=== PATIENT | male | born 1995 | race Caucasian/White ===

== ENCOUNTER 2021-10-21 19:06 | Inpatient (IN) | payer MEDICAID ==
[~2021-10-21] VITALS: Ht 180.3 cm; Wt 78.9 kg
--- NOTE | 2021-10-21 19:07 | NUR ---
MARIYA ESPINOSA VIA GURNEY TO BED 01.
--- NOTE | 2021-10-21 19:10 | NUR ---
Patient BIB by BLS. C/O Shortness of breath x 7 days. Patient reported, had cough , difficulty breathing for 7 days. Patient had been seen by ERMD in [facility], Dx Pneumonia. Rx IH and Promethazine. A/O,X4, oxygen sat 99% RA, place patient on radiographer cardiac catheterization and pluse ox.
[2021-10-21 19:12] VITALS: BP 134/85
--- NOTE | 2021-10-21 19:30 | NUR ---
COVID-19 swabs collected and sent to lab.
--- NOTE | 2021-10-21 19:42 | NUR ---
CXR at bedside.
[2021-10-21] MEDS ORDERED: ACETAMINOPHEN EXTRA STRENGTH 500 MG TAB PO ONE (20:35)
[2021-10-21] MEDS ORDERED: NACL 0.9% 1,000 ML IV ONE ×2 (20:35)
[2021-10-21] MEDS ORDERED: DOXYCYCLINE 100 MG in DEXTROSE 5% 100 ML IV ONE (20:35)
[2021-10-21 20:52] LABS: BASOPHILS # (AUTO) 0.1 K/uL (0.00-0.22); BASOPHILS % (AUTO) 0.7 % (0.0-2.0); EOSINOPHILS # (AUTO) 0.1 K/uL (0-0.4); EOSINOPHILS % (AUTO) 0.5 % (0.0-4.0); HEMATOCRIT 32.2 % (36-52); HEMOGLOBIN 10.7 g/dL (12.0-18.0); LYMPHOCYTES # (AUTO) 1.6 K/uL (2.0-11.5); LYMPHOCYTES % (AUTO) 10.4 % (20.5-51.1); MEAN CORPUSCULAR HEMOGLOBIN 28 pg (27-31); MEAN CORPUSCULAR HGB CONC 33 g/dL (33-37); MEAN CORPUSCULAR VOLUME 82.9 fL (80-94); MONOCYTES # (AUTO) 1.3 K/uL (0.8-1.0); MONOCYTES % (AUTO) 8.6 % (1.7-9.3); NEUTROPHILS # (AUTO) 12.1 K/uL (1.8-7.7); NEUTROPHILS % (AUTO) 79.8 % (42.2-75.2); PLATELET COUNT (AUTO) 525 K/uL (140-450); RED BLOOD CELL COUNT(AUTO) 3.88 MIL/uL (4.20-6.10); RED CELL DISTRIBUTION WIDTH 14.4 % (11.6-13.7); WHITE BLOOD COUNT (AUTO) 15.2 K/uL (4.8-10.8)
[2021-10-21] MEDS ORDERED: cefTRIAXone 1,000 MG VIAL ONE (20:55)
[2021-10-21 21:09] LABS: ALBUMIN 2.5 g/dL (3.4-5.0); CREATININE 0.8 mg/dL (0.6-1.3); TOTAL BILIRUBIN 1.1 mg/dL (0.0-1.0)
[2021-10-21] MEDS ORDERED: DOXYCYCLINE 100 MG VIAL IV ONE (21:37)
--- NOTE | 2021-10-21 22:50 | NUR ---
Report given to PHYLLIS Aguirre.
[2021-10-21 23:10] VITALS: BP 131/72
[2021-10-21] MEDS ORDERED: DOCUSATE SODIUM 100 MG GELCAP PO PRN (23:10)
[2021-10-21] MEDS ORDERED: SODIUM PHOS / POTASSIUM PHOS 1 PKT PDR PO PRN (23:10)
[2021-10-21] MEDS ORDERED: MORPHINE SULFATE 2 MG/ML SYR IVP PRN (23:10)
[2021-10-21] MEDS ORDERED: ACETAMINOPHEN 325 MG TAB PO PRN (23:10)
[2021-10-21] MEDS ORDERED: MAGNESIUM OXIDE 400 MG TAB PO PRN (23:10)
[2021-10-21] MEDS ORDERED: POTASSIUM CHLORIDE 10 MEQ TABER PO PRN (23:10)
[2021-10-21] MEDS ORDERED: ONDANSETRON 4 MG/2 ML VIAL IM/IVP PRN (23:10)
--- NOTE | 2021-10-21 23:15 | NUR ---
RECEIVED PATIENT FROM ED. PATIENT IS AWAKE, ALERT, AND COOPERATIVE. RESPIRATION EVEN UNLABORED ON ROOM AIR. NICK PAIN. SKIN IS WARM AND DRY. IV PATENT AND INTACT. LUNGS SOUND CRACKLES/DIMINISHED BILATERAL. HEART RATE REGULAR. S1 & S2 NOTED. BOWEL SOUNDS PRESENT IN ALL QUADRANTS. ABDOMEN SOFT AND NON-TENDER. DENIES PAIN. MRSA SCREEN DONE. VITALS WERE TAKEN. ORIENT PATIENT TO ROOM, STAFF, AND CALL LIGHT. ALL SAFETY MEASURES IN PLACE. BED IS AT LOW POSITION. CALL LIGHT WITHIN REACH. WILL CONTINUE TO MONITOR
[2021-10-21 23:39] LABS: PHOSPHORUS 3.8 mg/dL (2.5-4.9)
[2021-10-22 00:16] LABS: MAGNESIUM 2.1 mg/dL (1.8-2.4)
[2021-10-22] MEDS: NACL 0.9% 1,000 ML IV SCH ×2 (00:22→23:41)
--- NOTE | 2021-10-22 02:09 | NUR ---
MADE ROUNDS. PATIENT SLEEPING. RESPIRATION EVEN UNLABORED ON ROOM AIR. NO DISTRESS NOTED. WILL CONTINUE TO MONITOR
[2021-10-22 04:00] VITALS: BP 138/91
--- NOTE | 2021-10-22 04:10 | NUR ---
VITALS WERE TAKEN, PATIENT IN STABLE CONDITION, NO DISTRESS NOTED WILL CONTINUE TO MONITOR
[2021-10-22 05:46] LABS: BARBITURATE, URINE NEGATIVE ng/ml (NEG <=200); BENZODIAZEPINE, URINE NEGATIVE ng/mL (NEG <=200); CANNABINOID, URINE POSITIVE ng/mL (NEG <=50); COCAINE, URINE NEGATIVE ng/mL (NEG <=300); OPIATE, URINE NEGATIVE ng/mL (NEG <=2000); PHENCYCLIDINE SCREEN,URINE NEGATIVE ng/mL (NEG <=25)
[2021-10-22 06:52] LABS: HEMATOCRIT 31.4 % (36-52); HEMOGLOBIN 10.4 g/dL (12.0-18.0); MEAN CORPUSCULAR HEMOGLOBIN 28 pg (27-31); MEAN CORPUSCULAR HGB CONC 33 g/dL (33-37); MEAN CORPUSCULAR VOLUME 84.2 fL (80-94); PLATELET COUNT (AUTO) 487 K/uL (140-450); RED BLOOD CELL COUNT(AUTO) 3.73 MIL/uL (4.20-6.10); RED CELL DISTRIBUTION WIDTH 14.1 % (11.6-13.7); WHITE BLOOD COUNT (AUTO) 11.2 K/uL (4.8-10.8)
--- NOTE | 2021-10-22 07:11 | NUR ---
ENDORSED PATIENT TO DAY SHIFT NURSE FOR CONTINUITY OF CARE.
[2021-10-22 07:46] LABS: ANION GAP 12.2 (8-16); CARBON DIOXIDE 23.9 mmol/L (21-32); CREATININE 0.7 mg/dL (0.6-1.3); POTASSIUM 4.1 mmol/L (3.5-5.1)
--- NOTE | 2021-10-22 08:11 | NUR ---
PATIENT HAS BEEN SCREENED AND CATEGORIZED MODERATE NUTRITION RISK. PATIENT WILL BE SEEN WITHIN 3-5 DAYS OF ADMISSION. MART[address]
[2021-10-22 08:39] LABS: BASOPHILS % (MANUAL) 0 % (0-2); BLASTS, MANUAL % 0 % (0-0); EOSINOPHILS % (MANUAL) 1 % (0-4); LYMPHOCYTES % (MANUAL) 13 % (20-46); METAMYELOCYTES % 0 % (0-0); MONOCYTES % (MANUAL) 9 % (5-12); MYELOCYTES % 1 % (0-0); OTHER CELLS,MANUAL % 0 (0-0); PROMYELOCYTES % 0 % (0-0)
[2021-10-22] MEDS: PANTOPRAZOLE 40 MG TABEC PO SCH (09:41)
--- NOTE | 2021-10-22 10:52 | NUR ---
DC PLANN[age] YRS OLD MALE HOMELESS PATIENT WAS ADMITTED FROM ER WITH A DX OF PNEUMONIA. PATIENT HAS NO MEDICAL HISTORY. CXR SHOWED LEFT LUNG BASE CONSOLIDATION COMPATIBLE WITH PNEUMONIA. WBC 15.2, + FOR METHS, RAPID COVID TEST NEGATIVE. BLOOD CULTURE PENDING. ADMINISTERED IVF, IV ABX ROCEPHIN. DC PLAN TO GO HOME WHEN STABLE. CM TO FOLLOW
[2021-10-22] MEDS ORDERED: ALBUTEROL SULFATE/IPRATROPIU 3 ML SOL IH PRN (13:30)
--- NOTE | 2021-10-22 14:00 | NUR ---
DC PLANNING PATIENT IS A 26 YR OLD MALE WHO PRESENTED TO [facility]/ED ON 10/21/21 FOR SHORTNESS OF BREATH, COUGH AND PLEURITIC CHEST PAIN. SW MET WITH CLIENT AT BEDSIDE TO DISCUSS AND GATHER COLLATERAL INFORMATION.PATIENT REPORTED EMERGENCY CONTACT AND MEDICAL DECISION MAKER IRENE BROWN. SW INQUIRED ON A.D. CLIENT DECLINED CURRENTLY HAVING ONE IN PLACE. SW PROVIDED PATIENT WITH EDUCATION AND INFORMATION ON A.D, PATIENT WAS RECEPTIVE HOWEVER, PATIENT DECLINED AD PACKET OFFERED BY SW.PATIENT WAS UNABLE TO RECALL LAST VISIT WITH PCP. SW SPOKE WITH CLIENT ABOUT THE IMPORTANCE OF FOLLOW UP CARE AND OFFERED PATIENT ASSISTANCE ON IDENTIFYING PCP, PATIENT DECLINED. SW PROVIDED PATIENT WITH RESOURCES THAT INCLUDED EMERGENCY ASSISTANCE PACKET, HOMELESS/SENIOR CARE PACKET, WELL , SUBSTANCE USE PACKET PATIENT TESTED POSITIVE FOR METH AND CANNABIS USE. CLIENT DENIED METH USE HOWEVER, PATIENT ACCEPTED RESOURCE PACKETS. SW WILL FOLLOW UP NEEDED.
--- NOTE | 2021-10-22 15:00 | NUR ---
PATIENT WITH AT HOME MEDICATIONS IN BACKPACK TAKEN TO PHARMACY.
[2021-10-22] MEDS: HYDROcodone/APAP 5/325 MG 1 TAB TAB PO PRN (17:31)
[2021-10-22 19:03] VITALS: BP 106/61
--- NOTE | 2021-10-22 19:49 | NUR ---
PT PRESENTS LAYING IN BED ASLEEP, ALERT, AND COOPERATIVE, ON ROOM AIR SATING 97%. ANTERIOR AUSCULTATIONS REVEALED VESICULAR BREATH SOUNDS. NO SIGNS OF RESPIRATORY DISTRESS NOTED AT THIS TIME. WILL CONTINUE TO MONITOR.
[2021-10-22 20:00] VITALS: BP 110/61
--- NOTE | 2021-10-22 20:00 | NUR ---
REPORT RECEIVED. CARE TAKEN OVER. PT DROWSY. EASILY AROUSED. DENIES PAIN. LUNGS SOUND COARSE, NO COUGH AT THIS TIME. PULSE REGULAR, BOWEL SOUNDS PRESENT. PT STATED LAST BM THIS AFTERNOON 10/22/21. IV TO RIGHT WRIST WITH NS INFUSING AT 100CC/HR, SITE WNL. NO EDEMA. SKIN INTACT. WILL CONTINUE TO MONITOR.
[2021-10-22] MEDS: DOXYCYCLINE 100 MG in DEXTROSE 5% 100 ML IV SCH (20:02)
--- NOTE | 2021-10-22 23:41 | NUR ---
pt sleeping. no distress noted. will continue to monitor.
[2021-10-23] MEDS: HYDROcodone/APAP 5/325 MG 1 TAB TAB PO PRN (02:30)
--- NOTE | 2021-10-23 02:35 | NUR ---
pt awake in bed, repositioning self. with complaints of pain in chest muscles from earlier coughing spell. Marty PO given per MD order. Pt going back to sleep. Will continue to monitor.
--- NOTE | 2021-10-23 04:51 | NUR ---
Pt sleeping. No distress noted. Will continue to monitor.
--- NOTE | 2021-10-23 06:43 | NUR ---
Pt stable throughout shift. Pain controlled with Franklin per order. Will endorse care to dayshift RN.
[2021-10-23 07:13] LABS: BASOPHILS # (AUTO) 0.1 K/uL (0.00-0.22); BASOPHILS % (AUTO) 0.8 % (0.0-2.0); EOSINOPHILS # (AUTO) 0.3 K/uL (0-0.4); EOSINOPHILS % (AUTO) 3.2 % (0.0-4.0); HEMATOCRIT 33.1 % (36-52); HEMOGLOBIN 10.8 g/dL (12.0-18.0); LYMPHOCYTES # (AUTO) 1.5 K/uL (2.0-11.5); LYMPHOCYTES % (AUTO) 17.7 % (20.5-51.1); MEAN CORPUSCULAR HEMOGLOBIN 28 pg (27-31); MEAN CORPUSCULAR HGB CONC 33 g/dL (33-37); MEAN CORPUSCULAR VOLUME 84.7 fL (80-94); MONOCYTES # (AUTO) 0.5 K/uL (0.8-1.0); MONOCYTES % (AUTO) 6.1 % (1.7-9.3); NEUTROPHILS # (AUTO) 6.1 K/uL (1.8-7.7); NEUTROPHILS % (AUTO) 72.2 % (42.2-75.2); PLATELET COUNT (AUTO) 619 K/uL (140-450); RED BLOOD CELL COUNT(AUTO) 3.92 MIL/uL (4.20-6.10); RED CELL DISTRIBUTION WIDTH 14.4 % (11.6-13.7); WHITE BLOOD COUNT (AUTO) 8.4 K/uL (4.8-10.8)
[2021-10-23 07:35] LABS: CARBON DIOXIDE 26.5 mmol/L (21-32); CREATININE 0.7 mg/dL (0.6-1.3); POTASSIUM 4.5 mmol/L (3.5-5.1)
--- NOTE | 2021-10-23 08:10 | NUR ---
RECEIVE ENDORSEMENT FROM PM SHIFT NURSE. PT BETHEL W/ MELA @[facility] PATENT.
[2021-10-23] MEDS ORDERED: LORATADINE 10 MG TAB PO SCH (09:00)
[2021-10-23] MEDS: PANTOPRAZOLE 40 MG TABEC PO SCH (09:52)
[2021-10-23] MEDS: DOXYCYCLINE 100 MG in DEXTROSE 5% 100 ML IV SCH (09:53)
[2021-10-23] MEDS ORDERED: LEVO-315 PO (10:17)
[2021-10-23] MEDS ORDERED: ALBU0.0912 IH (10:18)
[2021-10-23] MEDS ORDERED: MUC600 PO (10:19)
--- NOTE | 2021-10-23 12:00 | NUR ---
PT REQUEST D/C HOME. PCP CAME AND ISSUE D/C ORDER. AM IV ANTIBIOTIC GIVEN. IV ACCESS REMOVED PRO DISCHARGE HOME.
--- NOTE | 2021-10-23 12:50 | NUR ---
Printed and verbal discharge instructions provided to patient, who verbalized understanding and able to repeat back instructions. Provided homeless resource packet, bus pass, and sacked lunch. Pt states he will reached out to family for fpc. Patient discharged at this time, all belongings with patient upon departure.
== END 2021-10-23 12:50 | disposition home or self-care (01) | DRG 720 ==
LOC: MED 19:06 → MMU 22:24 → MTU 22:37
PROVIDERS: ADMIT Hospitalist; ATTEND Hospitalist
DX: A41.9 Sepsis, unspecified organism (principal); E43 Unspecified severe protein-calorie malnutrition; J18.9 Pneumonia, unspecified organism; E87.1 Hypo-osmolality and hyponatremia; F12.90 Cannabis use, unspecified, uncomplicated; F15.90 Other stimulant use, unspecified, uncomplicated; Z20.822 Contact with and (suspected) exposure to COVID-19; Z68.24 Body mass index [BMI] 24.0-24.9, adult
CPT/HCPCS: 36415; 71045; 80048; 80053; 80305; 83605; 83735; 84100; 85025; 87040; 87081; 96361; 96365; 96367; 99285; J0696; J3490; J7030; J7060

== ENCOUNTER 2022-06-05 09:49 | Emergency (ER) | payer MEDICAID ==
[~2022-06-05] VITALS: Ht 180.3 cm; Wt 78.0 kg
[~2022-06-05 09:49] MED LIST: ALBU0.0912 IH; LEVO-481 PO; MUC600 PO
[2022-06-05 09:53] VITALS: BP 130/84
--- NOTE | 2022-06-05 10:18 | NUR ---
Patient ambulated to bed 6.
--- NOTE | 2022-06-05 10:30 | NUR ---
27YO MALE PT IN FOR HIV TESTING. STATES PARTNER WITH POSSIBLE +HIV . DENIES PAIN, N/V/D , CHEST PAIN , FEVER OR CHILLS. PT AAOX4, RESPIRATIONS EVEN AND UNLABORED. HOB POSITIONED PER COMFORT. HX:DENIES NKA
--- NOTE | 2022-06-05 11:10 | NUR ---
SHEFALI FRIAS AT BEDSIDE FOR EVALUATION
--- NOTE | 2022-06-05 11:20 | NUR ---
LAB AT BEDSIDE
[2022-06-05 12:16] VITALS: BP 125/76
--- NOTE | 2022-06-05 12:16 | NUR ---
Patient discharged with v/s stable. Written and verbal after care instructions for HIV ANTIBODY TEST given and explained. Patient verbalized understanding. Ambulatory with steady gait. All questions addressed prior to discharge. Advised to follow up with PMD.
== END 2022-06-05 12:16 | disposition home or self-care (01) ==
LOC: MED 09:49
DX: Z11.4 Encounter for screening for human immunodeficiency virus [HIV] (principal); J45.909 Unspecified asthma, uncomplicated; F12.90 Cannabis use, unspecified, uncomplicated; F15.90 Other stimulant use, unspecified, uncomplicated; Z79.899 Other long term (current) drug therapy; Z79.2 Long term (current) use of antibiotics
CPT/HCPCS: 86592; 99283

== ENCOUNTER 2022-07-26 19:07 | Emergency (ER) | payer MEDICAID ==
[~2022-07-26] VITALS: Ht 180.3 cm; Wt 79.4 kg
[2022-07-26 19:11] VITALS: BP 136/86
--- NOTE | 2022-07-26 19:32 | NUR ---
JESÚS TO CHAIR C
--- NOTE | 2022-07-26 20:36 | NUR ---
PATIENT BIB [employer] [place]. PATIENT EXAMINED BY SHEFALI DYE. PATIENT MEDICALLY CLEARED AND RELEASED IN CUSTODY IN STABLE CONDITION. ORIGINAL PRE-BOOK FORM GIVEN TO OFFICER [place] , #[id number].
== END 2022-07-26 20:36 ==
LOC: MED 19:07
DX: M25.531 Pain in right wrist (principal)
CPT/HCPCS: 73110; 73130; 99284

== ENCOUNTER 2023-07-14 14:36 | Emergency (ER) | payer MEDICAID ==
[~2023-07-14] VITALS: Ht 180.3 cm; Wt 86.6 kg
[2023-07-14 14:42] VITALS: BP 145/97; PULSE 127; RESP 20; TEMP 97; O2SAT 95
[2023-07-14] MEDS ORDERED: LIDOCAINE MPF 1% 10 MG/ML VIAL INJ ONE (15:15)
[2023-07-14] MEDS ORDERED: NACL 0.9% 1,000 ML IV SCH (15:20)
[2023-07-14] MEDS ORDERED: PIPERACILLIN/TAZOBACTAM 3.375 GM in DEXTROSE 5% 50 ML IV ONE (15:20)
[2023-07-14] MEDS ORDERED: LORazepam 1 MG TAB PO ONE (15:45)
[2023-07-14] MEDS ORDERED: PIPERACILLIN/TAZOBACTAM 3.375 GM VIAL IV ONE (16:06)
[2023-07-14] MEDS ORDERED: diphenhydrAMINE 50 MG/ML VIAL IVP ONE (16:25)
[2023-07-14] MEDS ORDERED: BACITRACIN OINT 500 UNITS/GM PKT TP ONE (16:57)
[2023-07-14] MEDS ORDERED: SULFAMETH/TRIMETH DS 800/160MG 1 TAB PO ONE (17:00)
[2023-07-14] MEDS ORDERED: SULF-59 PO (17:01)
[2023-07-14] MEDS ORDERED: CEPH-588 PO (17:01)
[2023-07-15 04:30] VITALS: BP 145/96; PULSE 86; RESP 16; TEMP 97.8; O2SAT 100
== END 2023-07-14 15:22 | disposition home or self-care (01) ==
LOC: MED 14:36
DX: L02.511 Cutaneous abscess of right hand (principal); J45.909 Unspecified asthma, uncomplicated; Z79.899 Other long term (current) drug therapy
CPT/HCPCS: 26010; 73120; 73140; 96365; 96375; 99284; J1200; J2001; J2543; J7030; Q0092

== ENCOUNTER 2023-08-03 00:14 | Emergency (ER) | payer MEDICAID ==
[~2023-08-03] VITALS: Ht 180.3 cm; Wt 79.8 kg
[~2023-08-03 00:14] MED LIST changes: +CEPH-588 PO; +SULF-59 PO
[2023-08-03 00:30] VITALS: BP 127/82; PULSE 81; RESP 16; TEMP 97.8; O2SAT 99
[2023-08-03] MEDS ORDERED: SULF-59 PO (00:40)
[2023-08-03 00:52] VITALS: BP 127/82; PULSE 81; RESP 16; TEMP 97.8; O2SAT 99
== END 2023-08-03 00:52 ==
LOC: MED 00:14
DX: L03.012 Cellulitis of left finger (principal); L03.011 Cellulitis of right finger; J45.909 Unspecified asthma, uncomplicated; Z79.899 Other long term (current) drug therapy
CPT/HCPCS: 99283